=== PATIENT | female | born 1985 | race American Indian/Alaskan Native ===

== ENCOUNTER 2019-01-08 21:40 | Emergency (ER) | payer SELFPAY ==
[2019-01-08 23:24] LABS: Hematocrit 41.1 % (30.3-42.9); Hemoglobin 14.1 gm/dl (10.1-14.3); Mean Corpuscular HGB Conc 34 % (30-34); Mean Corpuscular Volume 86 fl (79-97); Platelet Count 220 K/mm3 (140-440); Red Blood Count 4.77 M/mm3 (3.65-5.03); Red Cell Distribution Width 13.5 % (13.2-15.2)
[2019-01-08 23:36] LABS: Alanine Aminotransferase 18 units/L (7-56); Albumin 4.3 g/dL (3.9-5); BUN/Creatinine Ratio 18; Blood Urea Nitrogen 9 mg/dL (7-17); Calcium 9.4 mg/dL (8.4-10.2); Hemolysis Index 4
[2019-01-08 23:50] LABS: Basophils # (Auto) 0.1 K/mm3 (0.0-0.1); Basophils % (Auto) 0.8 % (0.0-1.8); Eosinophils # (Auto) 0.2 K/mm3 (0.0-0.4); Eosinophils % (Auto) 2.9 % (0.0-4.3); Lymphocytes # (Auto) 1.9 K/mm3 (1.2-5.4); Lymphocytes % (Auto) 25.9 % (13.4-35.0); Monocytes # (Auto) 0.6 K/mm3 (0.0-0.8); Monocytes % (Auto) 8.1 % (0.0-7.3)
[2019-01-09 00:20] LABS: Bacteria,Urine 1+ /HPF (Negative); Bilirubin,Urine NEG (Negative); Blood,Urine NEG (Negative); Color,Urine Yellow (Yellow); Mucus,Urine FEW /HPF; Protein,Urine <15 mg/dL mg/dL (Negative); Urobilinogen,Urine < 2.0 mg/dL (<2.0)
[2019-01-09] MEDS ORDERED: SUCRALFATE 1 GM/10 ML ORAL LIQD PO ONE (01:31)
[2019-01-09] MEDS ORDERED: LIDOCAINE VISCOUS 2% 15 ML ORAL LIQD PO ONE (01:32)
[2019-01-09] MEDS ORDERED: ALUM-MAG HYDROXIDE-SIMETHICONE 200-200-20MG/5ML ORAL LIQD 30 ML PO ONE (01:32)
--- NOTE | 2019-01-09 02:00 | Emergency Department Report ---
ED General Adult HPI - General Chief complaint: Abdominal Pain Stated complaint: ABDOMINAL PAIN Time Seen by Provider: 01/09/19 01:06 Source: patient Mode of arrival: Ambulatory Limitations: No Limitations - History of Present Illness Initial comments: The patient presents to the emergency department with a chief complaint of abdominal cramping that started a couple hours ago along with nausea. Patient states her symptoms started after eating broccoli at work. The patient denies any vomiting or fever. -: Sudden Location: abdomen Radiation: non-radiation Severity scale (0 -10): 2 Quality: other (cramping ) Consistency: now resolved Improves with: none Worsens with: none Associated Symptoms: denies other symptoms Treatments Prior to Arrival: none - Related Data Previous Rx's Medication Instructions Recorded Last Taken Type Amoxicillin [Trimox CAP] 500 mg PO Q8H #30 capsule 07/27/18 Unknown Rx Ibuprofen [Motrin 600 MG tab] 600 mg PO Q8H #15 tablet 07/27/18 Unknown Rx Dicyclomine [Bentyl] 10 mg PO QID PRN #20 capsule 01/09/19 Unknown Rx Allergies Allergy/AdvReac Type Severity Reaction Status Date / Time No Known Allergies Allergy Unverified 07/27/18 15:13 ED Review of Systems ROS: Stated complaint: ABDOMINAL PAIN Other details as noted in HPI Comment: All other systems reviewed and negative Constitutional: denies: chills, fever Eyes: denies: eye pain, eye discharge, vision change ENT: denies: ear pain, throat pain Respiratory: denies: cough, shortness of breath, wheezing Cardiovascular: denies: chest pain, palpitations Endocrine: no symptoms reported Gastrointestinal: abdominal pain. denies: nausea, diarrhea Genitourinary: denies: urgency, dysuria, discharge Musculoskeletal: denies: back pain, joint swelling, arthralgia Skin: denies: rash, lesions Neurological: denies: headache, weakness, paresthesias Psychiatric: denies: anxiety, depression Hematological/Lymphatic: denies: easy bleeding, easy bruising ED Past Medical Hx - Past Medical History Previous Medical History?: No - Surgical History Past Surgical History?: Yes Additional Surgical History: X 2 - Social History Smoking Status: Never Smoker Substance Use Type: None - Medications Home Medications: Home Medications Medication Instructions Recorded Confirmed Last Taken Type Amoxicillin [Trimox CAP] 500 mg PO Q8H #30 capsule 07/27/18 Unknown Rx Ibuprofen [Motrin 600 MG tab] 600 mg PO Q8H #15 tablet 07/27/18 Unknown Rx Dicyclomine [Bentyl] 10 mg PO QID PRN #20 capsule 01/09/19 Unknown Rx ED Physical Exam - General Limitations: No Limitations General appearance: alert, in no apparent distress - Head Head exam: Present: atraumatic, normocephalic - Eye Eye exam: Present: normal appearance, PERRL, EOMI - ENT ENT exam: Present: mucous membranes moist - Neck Neck exam: Present: normal inspection - Respiratory Respiratory exam: Present: normal lung sounds bilaterally. Absent: respiratory distress - Cardiovascular Cardiovascular Exam: Present: regular rate, normal rhythm. Absent: systolic murmur, diastolic murmur, rubs, gallop - GI/Abdominal GI/Abdominal exam: Present: soft, normal bowel sounds. Absent: distended, tenderness - Extremities Exam Extremities exam: Present: normal inspection - Back Exam Back exam: Present: normal inspection - Neurological Exam Neurological exam: Present: alert, oriented X3, CN II-XII intact. Absent: motor sensory deficit - Psychiatric Psychiatric exam: Present: normal affect, normal mood - Skin Skin exam: Present: warm, dry, intact, normal color. Absent: rash ED Course Vital Signs 01/08/19 21:54 Temperature 97.7 F Pulse Rate 64 Respiratory 18 Rate Blood Pressure 122/75 O2 Sat by Pulse 96 Oximetry ED Medical Decision Making - Lab Data Result diagrams: 01/08/19 23:06 01/08/19 23:06 Lab Results 01/08/19 01/08/19 01/08/19 Range/Units 23:06 23:06 23:06 WBC 7.3 (4.5-11.0) K/mm3 RBC 4.77 (3.65-5.03) M/mm3 Hgb 14.1 (10.1-14.3) gm/dl Hct 41.1 (30.3-42.9) % MCV 86 (79-97) fl MCH 30 (28-32) pg MCHC 34 (30-34) % RDW 13.5 (13.2-15.2) % Plt Count 220 (140-440) K/mm3 Lymph % (Auto) 25.9 (13.4-35.0) % [place] % (Auto) 8.1 H (0.0-7.3) % Eos % (Auto) 2.9 (0.0-4.3) % Baso % (Auto) 0.8 (0.0-1.8) % Lymph # 1.9 (1.2-5.4) K/mm3 [place] # 0.6 (0.0-0.8) K/mm3 Eos # 0.2 (0.0-0.4) K/mm3 Baso # 0.1 (0.0-0.1) K/mm3 Seg Neutrophils % 62.3 (40.0-70.0) % Seg Neutrophils # 4.7 (1.8-7.7) K/mm3 Sodium 138 (137-145) mmol/L Potassium 3.8 (3.6-5.0) mmol/L Chloride 102.2 (98-107) mmol/L Carbon Dioxide 26 (22-30) mmol/L Anion Gap 14 mmol/L BUN 9 (7-17) mg/dL Creatinine 0.5 L (0.7-1.2) mg/dL Estimated GFR > 60 ml/min BUN/Creatinine Ratio 18 % Glucose 115 H (65-100) mg/dL Calcium 9.4 (8.4-10.2) mg/dL Total Bilirubin 0.60 (0.1-1.2) mg/dL AST 21 (5-40) units/L ALT 18 (7-56) units/L Alkaline Phosphatase 87 (35-129) units/L Total Protein 8.0 (6.3-8.2) g/dL Albumin 4.3 (3.9-5) g/dL Albumin/Globulin Ratio 1.2 % Lipase 19 (13-60) units/L HCG, Qual Negative (Negative) Urine Color (Yellow) Urine Turbidity (Clear) Urine pH (5.0-7.0) Ur Specific [place] (1.003-1.030) Urine Protein (Negative) mg/dL Urine Glucose (UA) (Negative) mg/dL Urine Ketones (Negative) mg/dL Urine Blood (Negative) Urine Nitrite (Negative) Urine Bilirubin (Negative) Urine Urobilinogen (<2.0) mg/dL Ur Leukocyte Esterase (Negative) Urine WBC (Auto) (0.0-6.0) /HPF Urine RBC (Auto) (0.0-6.0) /HPF U Epithel Cells (Auto) (0-13.0) /HPF Urine Bacteria (Auto) (Negative) /HPF Urine Mucus /HPF 01/08/19 Range/Units 23:45 WBC (4.5-11.0) K/mm3 RBC (3.65-5.03) M/mm3 Hgb (10.1-14.3) gm/dl Hct (30.3-42.9) % MCV (79-97) fl MCH (28-32) pg MCHC (30-34) % RDW (13.2-15.2) % Plt Count (140-440) K/mm3 Lymph % (Auto) (13.4-35.0) % [place] % (Auto) (0.0-7.3) % Eos % (Auto) (0.0-4.3) % Baso % (Auto) (0.0-1.8) % Lymph # (1.2-5.4) K/mm3 [place] # (0.0-0.8) K/mm3 Eos # (0.0-0.4) K/mm3 Baso # (0.0-0.1) K/mm3 Seg Neutrophils % (40.0-70.0) % Seg Neutrophils # (1.8-7.7) K/mm3 Sodium (137-145) mmol/L Potassium (3.6-5.0) mmol/L Chloride (98-107) mmol/L Carbon Dioxide (22-30) mmol/L Anion Gap mmol/L BUN (7-17) mg/dL Creatinine (0.7-1.2) mg/dL Estimated GFR ml/min BUN/Creatinine Ratio % Glucose (65-100) mg/dL Calcium (8.4-10.2) mg/dL Total Bilirubin (0.1-1.2) mg/dL AST (5-40) units/L ALT (7-56) units/L Alkaline Phosphatase (35-129) units/L Total Protein (6.3-8.2) g/dL Albumin (3.9-5) g/dL Albumin/Globulin Ratio % Lipase (13-60) units/L HCG, Qual (Negative) Urine Color Yellow (Yellow) Urine Turbidity Clear (Clear) Urine pH 7.0 (5.0-7.0) Ur Specific [place] 1.016 (1.003-1.030) Urine Protein <15 mg/dl (Negative) mg/dL Urine Glucose (UA) Neg (Negative) mg/dL Urine Ketones Neg (Negative) mg/dL Urine Blood Neg (Negative) Urine Nitrite Neg (Negative) Urine Bilirubin Neg (Negative) Urine Urobilinogen < 2.0 (<2.0) mg/dL Ur Leukocyte Esterase Neg (Negative) Urine WBC (Auto) 2.0 (0.0-6.0) /HPF Urine RBC (Auto) 2.0 (0.0-6.0) /HPF U Epithel Cells (Auto) 1.0 (0-13.0) /HPF Urine Bacteria (Auto) 1+ (Negative) /HPF Urine Mucus Few /HPF - Medical Decision Making results discussed with patient Critical care attestation.: If time is entered above; I have spent that time in minutes in the direct care of this critically ill patient, excluding procedure time. ED Disposition Clinical Impression: Abdominal pain, Nausea Disposition: - TO HOME OR SELFCARE Is pt being admited?: No Does the pt Need Aspirin: No Condition: Stable Instructions: Abdominal Pain (ED) Additional Instructions: return if worse Prescriptions: Dicyclomine [Bentyl] 10 mg PO QID PRN #20 capsule PRN Reason: pain Referrals: PRIMARY CARE,MD [Primary Care Provider] - 3-5 Days [facility] [Provider Group] - 3-5 Days [facility] [Provider Group] - 3-5 Days Forms: Work/School Release Form(ED) Time of Disposition: 01:58
[2019-01-09 02:27] VITALS: BP 116/80
== END 2019-01-09 02:10 | disposition home or self-care (01) ==
LOC: ED 21:40
DX: R10.9 Unspecified abdominal pain (principal); R11.0 Nausea
CPT/HCPCS: 36415; 80053; 81001; 83690; 84703; 85025

== ENCOUNTER 2021-05-31 18:53 | Emergency (ER) | payer SELFPAY ==
[2021-05-31 19:58] LABS: Mucus,Urine FEW /HPF
[2021-05-31 20:07] LABS: Bilirubin,Urine Negative (Negative); Blood,Urine Negative (Negative); Color,Urine Yellow (Yellow)
[2021-05-31 20:08] LABS: Urobilinogen,Urine < 2.0 mg/dL (<2.0)
[2021-06-01 01:20] LABS: Basophils # (Auto) 0.1 K/mm3 (0.0-0.1); Basophils % (Auto) 0.5 % (0.0-1.8); Eosinophils # (Auto) 0.1 K/mm3 (0.0-0.4); Eosinophils % (Auto) 0.4 % (0.0-4.3); Hematocrit 41.7 % (30.3-42.9); Hemoglobin 13.7 gm/dl (10.1-14.3); Lymphocytes % (Auto) 14.3 % (13.4-35.0); Mean Corpuscular HGB Conc 33 % (30-34); Mean Corpuscular Volume 86 fl (79-97); Monocytes # (Auto) 0.8 K/mm3 (0.0-0.8); Monocytes % (Auto) 5.6 % (0.0-7.3); Platelet Count 243 K/mm3 (140-440); Red Blood Count 4.82 M/mm3 (3.65-5.03); Red Cell Distribution Width 13.6 % (13.2-15.2)
[2021-06-01 01:43] LABS: Alanine Aminotransferase 23 units/L (7-56); Albumin 4.2 g/dL (3.9-5); Blood Urea Nitrogen 8 mg/dL (7-17); Calcium 9.2 mg/dL (8.4-10.2); Hemolysis Index 15
[2021-06-01 01:55] LABS: BUN/Creatinine Ratio 16; Bilirubin,Direct < 0.2 mg/dL (0-0.2)
--- NOTE | 2021-06-01 03:26 | Cat Scan Report ---
CT ABDOMEN AND PELVIS WITH INTRAVENOUS CONTRAST INDICATION / CLINICAL INFORMATION: Lower abdominal cramping and pain x 12 hrs. TECHNIQUE: 100 cc Omnipaque [address] scans at this location are performed using CT d ose reduction for ALARA by means of automated exposure control. COMPARISON: None available. FINDINGS: ABDOMEN: There are several tiny cysts or hamartomas scattered throughout the liver. The gallbladder, bile ducts, pancreas, spleen, adrenal glands and kidneys are normal. There is a moderate hiatal herni a. I see no evidence of bowel obstruction, wall thickening or free air. No adenopathy is present. No acute vascular abnormality is seen. The lung bases are clear. PELVIS: There is a 9 cm complex cystic mass in the mid to lower pelvis in the midline. The mass conta ins internal septations and there is a fat fluid level anteriorly/superiorly. No calcifications are s een within the mass. There is a possible normal right ovary. I do not identify a separate left ovary. No free fluid is present. The uterus is displaced anteriorly by the mass. A normal appendix is identified and there is no evidence of diverticulitis. The distal ureters and ur inary bladder are normal. I do not identify a hernia. No acute osseous abnormality is present. IMPRESSION: 9 cm complex cystic mass in the mid to lower pelvis near the midline is probably ovarian. 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 This could be a cause for ovarian torsion. No free fluid is seen. Signer Name: Kodi Kan MD Signed: 06/01/2021 3:21 AM Workstation Name: [id number]
--- NOTE | 2021-06-01 06:39 | Emergency Department Report ---
ED Abdominal Pain HPI - General Chief Complaint: Abdominal Pain Stated Complaint: STOMACH PAIN Time Seen by Provider: 06/01/21 00:56 Source: patient, family Mode of arrival: Ambulatory Limitations: No Limitations - History of Present Illness Initial Comments: 36-year-old [place] female [facility] emerge department complaining of a few hour history of lower abdominal pain and a sharp crampy in nature radiating across the suprapubic region through to the flank associated with occasional nausea but no vomiting or diarrhea. She reports no hemoptysis no hematemesis hematochezia, no fever, chills, sweats. She reports no traumatic events and unsure of her status at this present time. MD Complaint: abdominal pain Radiation: suprapubic Migration to: suprapubic Consistency: constant Improves With: nothing Worsens With: movement Associated Symptoms: nausea. denies: constipation, dysuria, hematemesis, hematuria, anorexia - Related Data Previous Rx's Medication Instructions Recorded Last Taken Type Amoxicillin [Trimox CAP] 500 mg PO Q8H #30 capsule 07/27/18 Unknown Rx Ibuprofen [Motrin 600 MG tab] 600 mg PO Q8H #15 tablet 07/27/18 Unknown Rx Dicyclomine [Bentyl] 10 mg PO QID PRN #20 capsule 01/09/19 Unknown Rx Ketorolac [Toradol] 10 mg PO Q6H PRN #14 06/01/21 Unknown Rx Allergies Allergy/AdvReac Type Severity Reaction Status Date / Time No Known Allergies Allergy Unverified 07/27/18 15:13 ED Review of Systems ROS: Stated complaint: STOMACH PAIN Other details as noted in HPI Comment: All other systems reviewed and negative ED Past Medical Hx - Surgical History Additional Surgical History: X 2 - Social History Smoking Status: Never Smoker Substance Use Type: None - Medications Home Medications: Home Medications Medication Instructions Recorded Confirmed Last Taken Type Amoxicillin [Trimox CAP] 500 mg PO Q8H #30 capsule 07/27/18 Unknown Rx Ibuprofen [Motrin 600 MG tab] 600 mg PO Q8H #15 tablet 07/27/18 Unknown Rx Dicyclomine [Bentyl] 10 mg PO QID PRN #20 capsule 01/09/19 Unknown Rx Ketorolac [Toradol] 10 mg PO Q6H PRN #14 06/01/21 Unknown Rx ED Physical Exam - General Limitations: No Limitations General appearance: alert, in no apparent distress - Head Head exam: Present: atraumatic, normocephalic - Eye Eye exam: Present: normal appearance, PERRL Pupils: Present: normal accommodation - ENT ENT exam: Present: normal exam, normal orophraynx, mucous membranes moist, TM's normal bilaterally - Neck Neck exam: Present: normal inspection - Respiratory Respiratory exam: Present: normal lung sounds bilaterally. Absent: respiratory distress - Cardiovascular Cardiovascular Exam: Present: regular rate, normal rhythm. Absent: systolic murmur, diastolic murmur, rubs, gallop - GI/Abdominal GI/Abdominal exam: Present: soft, tenderness (Tenderness to suprapubic region with palpation left adnexa greater than right but no masses appreciated), normal bowel sounds - Extremities Exam Extremities exam: Present: normal inspection - Back Exam Back exam: Present: normal inspection - Neurological Exam Neurological exam: Present: alert, oriented X3 - Psychiatric Psychiatric exam: Present: normal affect, normal mood - Skin Skin exam: Present: warm, dry, intact, normal color. Absent: rash ED Course Vital Signs 05/31/21 05/31/21 19:04 19:05 Temperature 99.4 F Pulse Rate 88 85 Respiratory 16 Rate Blood Pressure 123/71 O2 Sat by Pulse 99 98 Oximetry ED Medical Decision Making - Lab Data Result diagrams: 06/01/21 01:04 06/01/21 01:04 - Radiology Data Radiology results: [id number] Cat Scan Report Signed Patient: EDISON FOUNTAIN MR#: [id number] : 1985 Acct:[id number] Age/Sex: 36 / F ADM Date: 05/31/21 Loc: ED Attending Dr: Ordering Physician: PHYLLIS BENAVIDES Date of Service: 06/01/21 Procedure(s): CT abdomen pelvis w con Accession Number(s): [id number] cc: PHYLLIS BENAVIDES CT ABDOMEN AND PELVIS WITH INTRAVENOUS CONTRAST INDICATION / CLINICAL INFORMATION: Lower abdominal cramping and pain x 12 hrs. TECHNIQUE: 100 cc Omnipaque [address] scans at this location are performed using CT dose reduction for ALARA by means of automated exposure control. COMPARISON: None available. FINDINGS: ABDOMEN: There are several tiny cysts or hamartomas scattered throughout the liver. The gallbladder, bile ducts, pancreas, spleen, adrenal glands and kidneys are normal. There is a moderate hiatal hernia. I see no evidence of bowel obstruction, wall thickening or free air. No adenopathy is present. No acute vascular abnormality is seen. The lung bases are clear. PELVIS: There is a 9 cm complex cystic mass in the mid to lower pelvis in the midline. The mass contains internal septations and there is a fat fluid level ant eriorly/superiorly. No calcifications are seen within the mass. There is a possible normal right ovary. I do not identify a separate left ovary. No free fluid is present. The uterus is displaced anteriorly by the mass. A normal appendix is identified and there is no evidence of diverticulitis. The distal ureters and urinary bladder are normal. I do not identify a hernia. No acute osseous ab normality is present. IMPRESSION: 9 cm complex cystic mass in the mid to lower pelvis near the midline is probably ovarian. The mass contains a small amount of fat and is likely an ovarian dermo id. This could be a cause for ovarian torsion. No free fluid is seen. Signer Name: Kodi Kan MD Signed: 06/01/2021 3:21 AM Workstation Name: [id number] Transcribed By: RT Dictated By: Kodi Kan MD Electronically Authenticated By: Kodi Kan MD Signed Date/Time: 06/01/21320 DD/ 1 TD/TT: Critical care attestation.: If time is entered above; I have spent that time in minutes in the direct care of this critically ill patient, excluding procedure time. ED Disposition Clinical Impression: Ovarian cyst Disposition: 01 HOME / SELF CARE / HOMELESS Is pt being admited?: No Does the pt Need Aspirin: No Condition: Stable Instructions: Abdominal Pain (ED), Ovarian Cystectomy, Ovarian Cyst, Tmis-am-Cohs Prescriptions: Ketorolac [Toradol] 10 mg PO Q6H PRN #14 PRN Reason: Pain Referrals: PRIMARY CARE, [Primary Care Provider] - 3-5 Days
--- NOTE | 2021-06-01 07:10 | Ultrasound Report ---
ULTRASOUND PELVIS INDICATION / CLINICAL INFORMATION: Pelvic pain. Possible torsion. TECHNIQUE: Transabdominal and Transvaginal. Duplex Color Doppler used: Yes. COMPARISON: CT abdomen and pelvis earlier today. FINDINGS: UTERUS: 8.9 x 4.1 x 4.3 cm. Endometrial stripe measures 8.7 mm AP. No fibroids are seen. The uterus i s displaced anteriorly and to the right. RIGHT ADNEXA: The right ovary is not visualized. No right adnexal mass is seen. LEFT ADNEXA: 9.3 cm complex cystic mass in the left adnexa and cul-de-sac. The lesion is predominantl y complex cystic but contains a focal hyperechoic focus which likely corresponds to the fat seen on C T. Normal color Doppler blood flow. URINARY BLADDER: No significant abnormality. FREE FLUID: None. ADDITIONAL FINDINGS: None. IMPRESSION: 9.3 cm complex cystic mass in the left adnexa is characteristic of an ovarian dermoid. No sonographic evidence of torsion is seen at this time. Signer Name: Kodi Kan MD Signed: 06/01/2021 7:06 AM Workstation Name: [id number]
[2021-06-01 08:01] VITALS: BP 122/74
== END 2021-06-01 07:56 | disposition home or self-care (01) ==
LOC: ED 18:53
DX: N83.209 Unspecified ovarian cyst, unspecified side (principal); I10 Essential (primary) hypertension; I25.10 Atherosclerotic heart disease of native coronary artery without angina pectoris; G89.29 Other chronic pain; Z98.890 Other specified postprocedural states
CPT/HCPCS: 36415; 74177; 76830; 76856; 80048; 80076; 81001; 84703; 85025; 99284; Q9967

== ENCOUNTER 2021-09-14 09:41 | Emergency (ER) | payer SELFPAY ==
[2021-09-14 11:10] VITALS: BP 128/68
--- NOTE | 2021-09-14 13:58 | Ultrasound Report ---
ULTRASOUND OBSTETRIC INDICATION / CLINICAL INFORMATION: pain sp fall. Pelvic pain after fall on 09/11/21. - Clinical Gestational Age (GA) in weeks, days: 7, 4 TECHNIQUE: Transabdominal and Transvaginal. COMPARISON: Ultrasound and CT dated 06/01/21 FINDINGS: GESTATIONAL SAC: Well-defined oval shape and intrauterine in location. YOLK SAC: No significant abnormality. EMBRYO/FETUS: No significant abnormality. - [place]-Rump Length = 1 2 cm = 7, 2 weeks, days - Heart Rate, beats per minute (if present) = 131 UTERUS: Small subchorionic bleed measuring 2.0 x 0.8 cm. ADNEXA: Large, complex cystic lesion with echogenic nodule in the right adnexa is unchanged since patricio or study. Lesion measures 7.8 x 5.8 x 7.0 cm on the current study essentially unchanged since the patricio or study. Small simple appearing left ovarian cysts. FREE FLUID: None. ADDITIONAL FINDINGS: None. IMPRESSION: 1. Single, living intrauterine with estimated sonographic age of 7, 2 weeks, days. 2. No change in large, complex cystic lesion in the right adnexa likely representing ovarian dermoid cyst. Signer Name: Steve Miller MD Signed: 09/14/2021 1:54 PM Workstation Name: [id number]
[2021-09-14 19:30] LABS: Color,Urine Straw (Yellow)
[2021-09-14 19:31] LABS: Bilirubin,Urine Negative (Negative); Blood,Urine Negative (Negative)
[2021-09-14 19:32] LABS: Urobilinogen,Urine < 2.0 mg/dL (<2.0)
--- NOTE | 2021-09-14 19:36 | Emergency Department Report ---
ED Fall HPI - General Chief Complaint: Abdominal Pain Stated Complaint: STOMACH PAIN Source: patient Mode of arrival: Ambulatory - History of Present Illness Initial Comments: Patient is a A1 36-year-old -Citizen Of The [place] female who is approximately 7 weeks gestation presents to the ED with complaint of acute onset abdominal pain after she tripped and fell down at home while sitting on a chair as the chair broke down 4 days ago. Patient states that the pain has been persistent since the injury. Patient denies vaginal bleeding, nausea and vomiting, back pain, head or neck injuries, chest pain or shortness of breath, dysuria, urinary frequency and urgency or vaginal discharge. MD Complaint: fall, other (ABDOMINAL PAIN, 7 weeks gestation) -: days(s) (4) Fall From: chair When Fall Occurred: # days [employer] O[employer] (4) Fall Witnessed: yes, by family Place Fall Occurred: home Loss of Consciousness: none Prolonged Down Time?: no Symptoms Prior to Fall: none Location: abdomen Severity: mild Severity scale (0 -10): 1 Quality: aching Context: tripped/slipped Associated Symptoms: denies. denies: headache, neck pain, numbness, weakness, chest paint, shortness of breath, abdominal pain, hematuria, unable to walk, lightheaded, vertigo, confusion - Related Data Previous Rx's Medication Instructions Recorded Last Taken Type Amoxicillin [Trimox CAP] 500 mg PO Q8H #30 capsule 07/27/18 Unknown Rx Ibuprofen [Motrin 600 MG tab] 600 mg PO Q8H #15 tablet 07/27/18 Unknown Rx Dicyclomine [Bentyl] 10 mg PO QID PRN #20 capsule 01/09/19 Unknown Rx Ketorolac [Toradol] 10 mg PO Q6H PRN #14 06/01/21 Unknown Rx Acetaminophen [Tylenol] 500 mg PO Q6HR PRN #40 tablet 09/14/21 Unknown Rx Allergies Allergy/AdvReac Type Severity Reaction Status Date / Time No Known Allergies Allergy Unverified 07/27/18 15:13 ED Review of Systems ROS: Stated complaint: STOMACH PAIN Other details as noted in HPI Constitutional: denies: chills, fever Eyes: denies: eye pain, eye discharge, vision change ENT: denies: ear pain, throat pain Respiratory: denies: cough, shortness of breath, wheezing Cardiovascular: denies: chest pain, palpitations Endocrine: no symptoms reported Gastrointestinal: abdominal pain. denies: nausea, vomiting, diarrhea Genitourinary: denies: urgency, dysuria, discharge Musculoskeletal: denies: back pain, joint swelling, arthralgia Skin: denies: rash, lesions Neurological: denies: headache, weakness, paresthesias Psychiatric: denies: anxiety, depression Hematological/Lymphatic: denies: easy bleeding, easy bruising ED Past Medical Hx - Past Medical History Previous Medical History?: No - Surgical History Past Surgical History?: Yes Additional Surgical History: X 2 - Social History Smoking Status: Never Smoker Substance Use Type: None - Medications Home Medications: Home Medications Medication Instructions Recorded Confirmed Last Taken Type Amoxicillin [Trimox CAP] 500 mg PO Q8H #30 capsule 07/27/18 Unknown Rx Ibuprofen [Motrin 600 MG tab] 600 mg PO Q8H #15 tablet 07/27/18 Unknown Rx Dicyclomine [Bentyl] 10 mg PO QID PRN #20 capsule 01/09/19 Unknown Rx Ketorolac [Toradol] 10 mg PO Q6H PRN #14 06/01/21 Unknown Rx Acetaminophen [Tylenol] 500 mg PO Q6HR PRN #40 tablet 09/14/21 Unknown Rx ED Physical Exam - General Limitations: No Limitations General appearance: alert, in no apparent distress - Head Head exam: Present: atraumatic, normocephalic, normal inspection - Eye Eye exam: Present: normal appearance, PERRL, EOMI Pupils: Present: normal accommodation - ENT ENT exam: Present: normal orophraynx, mucous membranes moist, TM's normal bilaterally, normal external ear exam - Neck Neck exam: Present: normal inspection, full ROM - Respiratory Respiratory exam: Present: normal lung sounds bilaterally. Absent: respiratory distress, wheezes, rales, rhonchi, chest wall tenderness, accessory muscle use, decreased breath sounds, prolonged expiratory - Cardiovascular Cardiovascular Exam: Present: regular rate, normal rhythm, normal heart sounds. Absent: systolic murmur, diastolic murmur, rubs, gallop - GI/Abdominal GI/Abdominal exam: Present: soft, normal bowel sounds. Absent: tenderness, guarding, rebound, hyperactive bowel sounds, hypoactive bowel sounds, organomegaly - Extremities Exam Extremities exam: Present: normal inspection, full ROM, normal capillary refill. Absent: tenderness - Back Exam Back exam: Present: normal inspection, full ROM. Absent: tenderness, CVA tenderness (R), CVA tenderness (L), muscle spasm, paraspinal tenderness, vertebral tenderness - Neurological Exam Neurological exam: Present: alert, oriented X3, CN II-XII intact, normal gait, reflexes normal - Psychiatric Psychiatric exam: Present: normal affect, normal mood - Skin Skin exam: Present: warm, dry, intact, normal color. Absent: rash ED Course Vital Signs 09/14/21 11:05 Temperature 98.1 F Pulse Rate 70 Respiratory 20 Rate Blood Pressure 128/68 [Right] O2 Sat by Pulse 100 Oximetry ED Medical Decision Making - Radiology Data Radiology results: report reviewed, image reviewed [facility] [address] [place] [address] Ultrasound Report Signed Patient: EDISON FOUNTAIN MR#: [id number] : 1985 Acct:[id number] Age/Sex: 36 / F ADM Date: 09/14/21 Loc: ED Attending Dr: Ordering Physician: ISIDRA PRECIADO Date of Service: 09/14/21 Procedure(s): US OB transvaginal Accession Number(s): [id number] cc: ISIDRA PRECIADO ULTRASOUND OBSTETRIC INDICATION / CLINICAL INFORMATION: pain sp fall. Pelvic pain after fall on 09/11/21. - Clinical Gestational Age (GA) in weeks, days: 7, 4 TECHNIQUE: Transabdominal and Transvaginal. COMPARISON: Ultrasound and CT dated 06/01/21 FINDINGS: GESTATIONAL SAC: Well-defined oval shape and intrauterine in location. YOLK SAC: No significant abnormality. EMBRYO/FETUS: No significant abnormality. - Monessen-Rump Length = 1 2 cm = 7, 2 weeks, days - Heart Rate, beats per minute (if present) = 131 UTERUS: Small subchorionic bleed measuring 2.0 x 0.8 cm. ADNEXA: Large, complex cystic lesion with echogenic nodule in the right adnexa is unchanged since prior study. Lesion measures 7.8 x 5.8 x 7.0 cm on the current study essentially unchanged since the prior study. Small simple appearing left ovarian cysts. FREE FLUID: None. ADDITIONAL FINDINGS: None. IMPRESSION: 1. Single, living intrauterine with estimated sonographic age of 7, 2 weeks, days. 2. No change in large, complex cystic lesion in the right adnexa likely representing ovarian dermoid cyst. Signer Name: Steve Miller MD Signed: 09/14/2021 1:54 PM Workstation Name: [id number] Transcribed By: CLAUDIA Dictated By: Hung Miller MD Electronically Authenticated By: Hung Miller MD Signed Date/Time: 09/14/21 1354 DD/ 1349 TD/TT: -------- [facility] [address] [place] [address] Ultrasound Report Signed Patient: EDISON FOUNTAIN MR#: [id number] : 1985 Acct:[id number] Age/Sex: 36 / F ADM Date: 09/14/21 Loc: ED Attending Dr: Ordering Physician: ISIDRA PRECIADO Date of Service: 09/14/21 Procedure(s): US OB <= 14 weeks fetus Accession Number(s): [id number] cc: ISIDRA PRECIADO ULTRASOUND OBSTETRIC INDICATION / CLINICAL INFORMATION: pain sp fall. Pelvic pain after fall on 09/11/21. - Clinical Gestational Age (GA) in weeks, days: 7, 4 TECHNIQUE: Transabdominal and Transvaginal. COMPARISON: Ultrasound and CT dated 06/01/21 FINDINGS: GESTATIONAL SAC: Well-defined oval shape and intrauterine in location. YOLK SAC: No significant abnormality. EMBRYO/FETUS: No significant abnormality. - Monessen-Rump Length = 1 2 cm = 7, 2 weeks, days - Heart Rate, beats per minute (if present) = 131 UTERUS: Small subchorionic bleed measuring 2.0 x 0.8 cm. ADNEXA: Large, complex cystic lesion with echogenic nodule in the right adnexa is unchanged since prior study. Lesion measures 7.8 x 5.8 x 7.0 cm on the current study essentially unchanged since the prior study. Small simple appearing left ovarian cysts. FREE FLUID: None. ADDITIONAL FINDINGS: None. IMPRESSION: 1. Single, living intrauterine with estimated sonographic age of 7, 2 weeks, days. 2. No change in large, complex cystic lesion in the right adnexa likely representing ovarian dermoid cyst. Signer Name: Steve Miller MD Signed: 09/14/2021 1:54 PM Workstation Name: [id number] Transcribed By: DT Dictated By: Hung Miller MD Electronically Authenticated By: Hung Miller MD Signed Date/Time: 09/14/21 1359 DD/ 1349 TD/TT: Print - Medical Decision Making This is a A1 36-year-old -Citizen Of [place] female who is approximately 7 weeks gestation presents to the ED with complaint of acute onset abdominal pain after she tripped and fell down at home while sitting on a chair as the chair broke down 4 days ago. Patient states that the pain has been persistent since the injury. In the ED, patient is alert and oriented x3 and is not in any distress. Lab test results were reviewed and are all nonactionable. Transvaginal ultrasound showed a single, living intrauterine with estimated sonographic age of 7, 2 weeks, days with a heart rate of 131 bpm. In addition, it also showed no change in large, complex cystic lesion in the right adnexa likely representing ovarian dermoid cyst. Patient was therefore discharged home and advised to follow-up with the [employer] [employer] physician in 5 to 7 days for reevaluation or return to the ED immediately if symptoms get worse. - Differential Diagnosis Abdominal contusion; UTI; subchorionic bleed; Critical care attestation.: If time is entered above; I have spent that time in minutes in the direct care of this critically ill patient, excluding procedure time. ED Disposition Clinical Impression: Abdominal pain during in first trimester, Contusion of abdominal wall, initial encounter Disposition: 01 HOME / SELF CARE / HOMELESS Is pt being admited?: No Does the pt Need Aspirin: No Condition: Stable Instructions: Abdominal Pain During , [id number], Contusion, [id number], Abdominal Pain (ED) Additional Instructions: The transvaginal ultrasound and pelvic ultrasound showed a single, living intrauterine with estimated sonographic age of 7, 2 weeks, days and with a heart rate of 131 bpm. It also showed no change in large, complex cystic lesion in the right adnexa likely representing ovarian dermoid cyst. Therefore take Tylenol as needed for pain, plenty of fluids, follow-up with your [facility] physician in 5 to 7 days for reevaluation. Return to the ED immediately if symptoms get worse. Prescriptions: Acetaminophen [Tylenol] 500 mg PO Q6HR PRN #40 tablet PRN Reason: Pain , Severe (7-10) Referrals: ABHILASH MALDONADO MD [Staff Physician] - 3-5 Days Forms: Work/School Release Form(ED) Time of Disposition: 19:37 Print Language: CHINESE
[2021-09-14 19:48] LABS: Bacteria,Urine 1+ /HPF (Negative); Mucus,Urine 3+ /HPF
== END 2021-09-15 00:04 | disposition home or self-care (01) ==
LOC: ED 09:41
DX: O26.891 Other specified pregnancy related conditions, first trimester (principal); S30.1XXA Contusion of abdominal wall, initial encounter; Z3A.01 Less than 8 weeks gestation of pregnancy; Z98.890 Other specified postprocedural states; W01.0XXA Fall on same level from slipping, tripping and stumbling without subsequent striking against object, initial encounter; Y93.89 Activity, other specified; Y92.89 Other specified places as the place of occurrence of the external cause; Y99.8 Other external cause status
CPT/HCPCS: 76801; 76817; 81001; 99284

== ENCOUNTER 2021-11-11 13:26 | Emergency (ER) | payer MEDICAID, OTHER ==
[2021-11-11] MEDS ORDERED: SODIUM CHLORIDE 0.9% 1000 ML 1,000 ML IV ONE (14:37)
[2021-11-11 15:14] LABS: Basophils # (Auto) 0.1 K/mm3 (0.0-0.1); Basophils % (Auto) 0.5 % (0.0-1.8); Eosinophils # (Auto) 0.1 K/mm3 (0.0-0.4); Eosinophils % (Auto) 0.7 % (0.0-4.3); Hematocrit 35.4 % (30.3-42.9); Hemoglobin 12.6 gm/dl (10.1-14.3); Lymphocytes # (Auto) 1.9 K/mm3 (1.2-5.4); Lymphocytes % (Auto) 18.7 % (13.4-35.0); Mean Corpuscular HGB Conc 36 % (30-34); Mean Corpuscular Volume 86 fl (79-97); Monocytes # (Auto) 0.6 K/mm3 (0.0-0.8); Platelet Count 201 K/mm3 (140-440); Red Blood Count 4.12 M/mm3 (3.65-5.03); Red Cell Distribution Width 14.1 % (13.2-15.2)
[2021-11-11 15:29] LABS: INR 0.93 (0.87-1.13)
[2021-11-11 15:36] LABS: Blood Urea Nitrogen 4 mg/dL (7-17); Calcium 8.3 mg/dL (8.4-10.2); Hemolysis Index 10
[2021-11-11 15:46] LABS: BUN/Creatinine Ratio 10
--- NOTE | 2021-11-11 16:36 | Ultrasound Report ---
US OB <= 14 WEEKS FETUS US OB TRANSVAGINAL INDICATION / CLINICAL INFORMATION: Vaginal bleeding. COMPARISON: Ultrasound 08/15/2021 FINDINGS: There is no intrauterine . Trace endometrial fluid is noted. Endometrial echo complex is thi ckened measuring up to 3.6 cm. There is vascularity in this region. 1.6 cm left ovarian cyst is noted. 8.3 cm right ovarian mass consistent with the patient's known dermoid lesion, unchanged. IMPRESSION: 1. No sonographic evidence of intrauterine . 2. In addition to trace endometrial fluid, endometrial echo complex is markedly thickened measuring o hossein 3 cm and has vascularity here. This is concerning for retained products. 3. Large right ovarian dermoid as seen on prior studies. Signer Name: Toño Simmons MD Signed: 11/11/2021 4:31 PM Workstation Name: [email or web address]
[2021-11-11] MEDS ORDERED: MORPHINE 4 MG/1 ML INJ IV ONE (16:56)
[2021-11-11] MEDS ORDERED: ONDANSETRON 4 MG/2 ML INJ IV ONE (16:56)
--- NOTE | 2021-11-11 17:04 | Emergency Department Report ---
ED Abdominal Pain HPI - General Chief Complaint: Urogenital-Female Stated Complaint: MISCARRIAGE PUI?: No Time Seen by Provider: 11/11/21 14:37 Source: patient, EMS Mode of arrival: Stretcher Limitations: No Limitations - History of Present Illness Initial Comments: PT HERE AFTER HAVING MISCARRIAGE THIS AFTERNOON, FETUS BROUGHT IN MD Complaint: abdominal pain -: hour(s) Location: diffuse Radiation: none Migration to: no migration Severity scale (0 -10): 3 Quality: aching Consistency: constant Improves With: nothing Associated Symptoms: denies: denies other symptoms, chills, constipation - Related Data Previous Rx's Medication Instructions Recorded Last Taken Type Amoxicillin [Trimox CAP] 500 mg PO Q8H #30 capsule 07/27/18 Unknown Rx Ibuprofen [Motrin 600 MG tab] 600 mg PO Q8H #15 tablet 07/27/18 Unknown Rx Dicyclomine [Bentyl] 10 mg PO QID PRN #20 capsule 01/09/19 Unknown Rx Ketorolac [Toradol] 10 mg PO Q6H PRN #14 06/01/21 Unknown Rx Acetaminophen [Tylenol] 500 mg PO Q6HR PRN #40 tablet 09/14/21 Unknown Rx Allergies Allergy/AdvReac Type Severity Reaction Status Date / Time No Known Allergies Allergy Verified 11/11/21 14:02 ED Review of Systems ROS: Stated complaint: MISCARRIAGE Other details as noted in HPI Constitutional: denies: chills, fever Eyes: denies: eye pain, eye discharge, vision change ENT: denies: ear pain, throat pain Respiratory: denies: cough, shortness of breath, wheezing Cardiovascular: denies: chest pain, palpitations Endocrine: no symptoms reported Gastrointestinal: denies: abdominal pain, nausea, diarrhea Genitourinary: denies: urgency, dysuria, discharge Musculoskeletal: denies: back pain, joint swelling, arthralgia Skin: denies: rash, lesions Neurological: denies: headache, weakness, paresthesias Psychiatric: denies: anxiety, depression Hematological/Lymphatic: denies: easy bleeding, easy bruising ED Past Medical Hx - Past Medical History Previous Medical History?: No Hx Hypertension: No Additional medical history: MISCARRIAGE - Surgical History Past Surgical History?: No Additional Surgical History: X 2 - Social History Smoking Status: Never Smoker Substance Use Type: None - Medications Home Medications: Home Medications Medication Instructions Recorded Confirmed Last Taken Type Amoxicillin [Trimox CAP] 500 mg PO Q8H #30 capsule 07/27/18 Unknown Rx Ibuprofen [Motrin 600 MG tab] 600 mg PO Q8H #15 tablet 07/27/18 Unknown Rx Dicyclomine [Bentyl] 10 mg PO QID PRN #20 capsule 01/09/19 Unknown Rx Ketorolac [Toradol] 10 mg PO Q6H PRN #14 06/01/21 Unknown Rx Acetaminophen [Tylenol] 500 mg PO Q6HR PRN #40 tablet 09/14/21 Unknown Rx ED Physical Exam - General Limitations: No Limitations General appearance: alert, in no apparent distress - Head Head exam: Present: atraumatic, normocephalic - Eye Eye exam: Present: normal appearance - ENT ENT exam: Present: mucous membranes moist - Neck Neck exam: Present: normal inspection - Respiratory Respiratory exam: Present: normal lung sounds bilaterally. Absent: respiratory distress - Cardiovascular Cardiovascular Exam: Present: regular rate, normal rhythm. Absent: systolic murmur, diastolic murmur, rubs, gallop - GI/Abdominal GI/Abdominal exam: Present: soft, normal bowel sounds - Extremities Exam Extremities exam: Present: normal inspection - Back Exam Back exam: Present: normal inspection - Neurological Exam Neurological exam: Present: alert, oriented X3 - Psychiatric Psychiatric exam: Present: normal affect, normal mood - Skin Skin exam: Present: warm, dry, intact, normal color. Absent: rash ED Course Vital Signs 11/11/21 11/11/21 11/11/21 14:00 14:30 14:35 Pulse Rate 120 H Respiratory 16 18 Rate Blood Pressure Blood Pressure 127/83 [Right] O2 Sat by Pulse 98 96 96 Oximetry 11/11/21 11/11/21 11/11/21 14:48 16:18 16:31 Pulse Rate 79 Respiratory 15 Rate Blood Pressure 117/61 123/69 Blood Pressure [Right] O2 Sat by Pulse 96 100 98 Oximetry 11/11/21 16:45 Pulse Rate 74 Respiratory 21 Rate Blood Pressure 116/60 Blood Pressure [Right] O2 Sat by Pulse 98 Oximetry ED Medical Decision Making - Lab Data Result diagrams: 11/11/21 15:05 11/11/21 15:05 - Radiology Data Radiology results: report reviewed, image reviewed - Medical Decision Making work up US showed imcompete vss, no distres bleeidng stopped, will se mikana Ob for D/C next week pain controlled Critical care attestation.: If time is entered above; I have spent that time in minutes in the direct care of this critically ill patient, excluding procedure time. ED Disposition Clinical Impression: Incomplete Disposition: HOME / SELF CARE / HOMELESS Is pt being admited?: Yes Does the pt Need Aspirin: Yes Condition: Stable Instructions: Incomplete Miscarriage, Miscarriage, [id number]
[2021-11-11 19:10] VITALS: BP 112/67
== END 2021-11-11 19:56 | disposition home or self-care (01) ==
LOC: ED 13:26
DX: O03.4 Incomplete spontaneous abortion without complication (principal); Z3A.00 Weeks of gestation of pregnancy not specified
CPT/HCPCS: 36415; 76801; 76817; 80048; 84702; 85025; 85610; 86850; 86900; 86901; 96361; 96374; 96375; 99284; J2270; J2405; J7030

== ENCOUNTER 2021-11-12 23:10 | Emergency (ER) | payer OTHER ==
[2021-11-13 00:11] LABS: Basophils % (Auto) 0.4 % (0.0-1.8); Eosinophils # (Auto) 0.1 K/mm3 (0.0-0.4); Eosinophils % (Auto) 1.5 % (0.0-4.3); Hematocrit 35.8 % (30.3-42.9); Hemoglobin 12.1 gm/dl (10.1-14.3); Lymphocytes # (Auto) 2.3 K/mm3 (1.2-5.4); Lymphocytes % (Auto) 25.3 % (13.4-35.0); Mean Corpuscular HGB Conc 34 % (30-34); Mean Corpuscular Volume 88 fl (79-97); Monocytes # (Auto) 0.7 K/mm3 (0.0-0.8); Monocytes % (Auto) 7.8 % (0.0-7.3); Platelet Count 222 K/mm3 (140-440); Red Blood Count 4.08 M/mm3 (3.65-5.03); Red Cell Distribution Width 14.5 % (13.2-15.2)
[2021-11-13 00:59] LABS: Bacteria,Urine 1+ /HPF (Negative); Color,Urine Red (Yellow); Mucus,Urine 3+ /HPF; RBC,Urine > 182.0 /HPF (0.0-6.0)
[2021-11-13] MEDS ORDERED: ACETAMINOPHEN 500 MG TAB PO ONE (02:02)
[2021-11-13] MEDS ORDERED: MORPHINE 4 MG/1 ML INJ IV ONE (02:23)
[2021-11-13] MEDS ORDERED: cefTRIAXone/NS 1 GM/50 ML 1 GM/50 ML BAG IV ONE (02:25)
[2021-11-13] MEDS ORDERED: SODIUM CHLORIDE 0.9% 1000 ML 1,000 ML IV ONE (03:22)
[2021-11-13 03:38] LABS: Hemoglobin 9.9 gm/dl (10.1-14.3)
--- NOTE | 2021-11-13 04:24 | Emergency Department Report ---
ED HPI - General Chief complaint: Vaginal Bleeding Stated complaint: BLEEDING Time Seen by Provider: 11/13/21 02:21 Source: patient Mode of arrival: Ambulatory Limitations: No Limitations - History of Present Illness Initial comments: Patient is a 36-year-old female who was 15+2 weeks and was seen here yesterday and diagnosed with incomplete AB. She presents with her who states that she was doing fine until this evening when she started having severe cramping and bleeding again. Patient is extremely uncomfortable upon my arrival into the room and was given morphine. Most of history is obtained from as patient was initially extremely uncomfortable. He does state that she has been sitting on the commode at home prior to coming to the ER and intermittently since she has been here so he has no idea how much bleeding she has had but he states "it was all over the bathroom and all over her close." Ultrasound from yesterday's visit final impression as follows: IMPRESSION: 1. No sonographic evidence of intrauterine . 2. In addition to trace endometrial fluid, endometrial echo complex is markedly thickened measuring over 3 cm and has vascularity here. This is concerning for retained products. 3. Large right ovarian dermoid as seen on prior studies. . MD Complaint: vaginal bleeding, "contractions" - Related Data Previous Rx's Medication Instructions Recorded Last Taken Type Acetaminophen [Acetaminophen TAB] 500 mg PO Q6HR PRN #40 tablet 09/14/21 Unknown Rx Methylergonovine [Methergine] 0.2 mg PO Q6HR 3 Days #12 tablet 11/13/21 Unknown Rx 148/Iron/Folate 6/Dha 1 each PO DAILY #30 cap 11/13/21 Unknown Rx [Tendera-Ob Softgel] Allergies Allergy/AdvReac Type Severity Reaction Status Date / Time No Known Allergies Allergy Verified 11/11/21 14:02 ED Review of Systems ROS: Stated complaint: BLEEDING Other details as noted in HPI ED Past Medical Hx - Past Medical History Previous Medical History?: Yes Hx Hypertension: No Additional medical history: MISCARRIAGE - Surgical History Past Surgical History?: Yes Additional Surgical History: X 2 - Social History Smoking Status: Never Smoker Substance Use Type: None - Medications Home Medications: Home Medications Medication Instructions Recorded Confirmed Last Taken Type Acetaminophen [Acetaminophen TAB] 500 mg PO Q6HR PRN #40 tablet 09/14/21 Unknown Rx Methylergonovine [Methergine] 0.2 mg PO Q6HR 3 Days #12 tablet 11/13/21 Unknown Rx 148/Iron/Folate 6/Dha 1 each PO DAILY #30 cap 11/13/21 Unknown Rx [Tendera-Ob Softgel] ED Physical Exam - General Limitations: No Limitations ED Course Vital Signs 11/12/21 11/13/21 23:17 01:53 Temperature 97.8 F Pulse Rate 76 84 Respiratory 18 14 Rate Blood Pressure 117/74 Blood Pressure 106/72 [Left] O2 Sat by Pulse 98 100 Oximetry - Reevaluation(s) Reevaluation #1: 11/13/21 05:12 Multiple reevaluations after pelvic exam. Patient just has some mild cramping and has soaked only 1 pad. However when she returned from ultrasound she was just on a Chux which was approximately one third saturated. - Consultations Consultation #1: 11/13/21 06:[address] Dee Campo on-call for [employer]. She recommended oral Methergine every 6 hours for 2 to 3 days and follow-up with [facility] this week. ED Medical Decision Making - Lab Data Result diagrams: 11/13/21 03:25 - Radiology Data Radiology results: report reviewed [facility] [address] [place] [address] Ultrasound Report Signed Patient: EDISON FOUNTAIN MR#: [id number] : 1985 Acct:[id number] Age/Sex: 36 / F ADM Date: 11/12/21 Loc: ED Attending Dr: Ordering Physician: PHYLLIS ARANGO Date of Service: 11/13/21 Procedure(s): US OB transvaginal Accession Number(s): [id number] cc: PHYLLIS ARANGO ULTRASOUND OBSTETRIC INDICATION: Spontaneous . Clinical Gestational Age (GA): Unknown. TECHNIQUE: Transabdominal and Transvaginal. COMPARISON: OB ultrasound performed on 11/11/2021. FINDINGS: No intrauterine or ectopic is identified. There is similar endometrial thickening, measuring 2.8 cm. No increased color flow is seen along the endometrium. No other significant abnormality of the uterus. The ovaries are not seen. No adnexal mass is identified. No free fluid is seen. IMPRESSION: 1. No sonographic evidence of an intrauterine or ectopic . 2. Persistent endometrial thickening without identification of increased color flow along the endometrium as noted previously. Signer Name: Chucky Robles MD Signed: 11/13/2021 4:48 AM Workstation Name: [id number] Transcribed By: VICK Dictated By: Chucky Robles MD Electronically Authenticated By: Chucky Robles MD Signed Date/Time: 11/13/21447 DD/ 4 TD/TT: - Medical Decision Making As above Case discussed with Dr. Tiwari. Patient is soaking less than 1 pad an hour at this time. IV fluids have been given and she is not orthostatic. Ultrasound reveals resolution of the vascular component of retained products. Methergine 0.2 mg every 6 hours for 3 days and follow-up with [facility] - Differential Diagnosis Spontaneous AB. Incomplete AB. Vaginal bleeding. Critical care attestation.: If time is entered above; I have spent that time in minutes in the direct care of this critically ill patient, excluding procedure time. ED Disposition Clinical Impression: Spontaneous , Anemia Disposition: HOME / SELF CARE / HOMELESS Is pt being admited?: No Condition: Stable Instructions: Miscarriage, [id number] Additional Instructions: Methergine 0.2 mg every 6 hours for 3 days and follow-up with [facility]. Continue pad count and if soaking more than 1 pad per hour or increasing weakness/fatigue return. Prescriptions: Methylergonovine [Methergine] 0.2 mg PO Q6HR 3 Days #12 tablet 148/Iron/Folate 6/Dha [Tendera-Ob Softgel] 1 each PO DAILY #30 cap Referrals: PRIMARY CARE, [Primary Care Provider] - 3-5 Days Forms: Work/School Release Form(ED) Time of Disposition: 06:38
--- NOTE | 2021-11-13 04:52 | Ultrasound Report ---
ULTRASOUND OBSTETRIC INDICATION: Spontaneous . Clinical Gestational Age (GA): Unknown. TECHNIQUE: Transabdominal and Transvaginal. COMPARISON: OB ultrasound performed on 11/11/2021. FINDINGS: No intrauterine or ectopic is identified. There is similar endometrial thickening, measurin g 2.8 cm. No increased color flow is seen along the endometrium. No other significant abnormality of the uterus. The ovaries are not seen. No adnexal mass is identified. No free fluid is seen. IMPRESSION: 1. No sonographic evidence of an intrauterine or ectopic . 2. Persistent endometrial thickening without identification of increased color flow along the endomet rium as noted previously. Signer Name: Chucky Robles MD Signed: 11/13/2021 4:48 AM Workstation Name: [id number]
[2021-11-13] MEDS ORDERED: METHYLERGONOVINE 0.2 MG TABLET PO ONE (06:33)
[2021-11-13] MEDS ORDERED: METHYLERGONOVINE 0.2 MG TABLET PO SCH (07:30)
[2021-11-13 07:32] VITALS: BP 99/63
--- NOTE | 2021-11-14 09:50 | Emergency Department Report ---
HPI - General Chief Complaint: Vaginal Bleeding Time Seen by Provider: 11/13/21 02:21 - HPI HPI: This is an addendum to patient's original chart. My physical exam did not get documented. General appearance well-developed well-nourished 36-year-old female in moderate distress. Eyes conjunctiva clear without scleral icterus HEENT head is atraumatic n ormocephalic neck is supple without lymphadenopathy heart is regular rate and rhythm without murmurs rubs or gallops lungs clear to auscultation without rales rhonchi or wheezes abdomen is soft with diffuse tendernessno peritoneal signs. Bowel sounds are normal active no CVA tenderness. Female genitourinary urinary external genitalia is with moderate amount of blood vaginal vault is with copious amount of blood and clots. Severe laxity of vaginal wall makes it difficult to fully view os but attempt to remove products of conception from the vault with gentle uterine massage simultaneously eventually the patient stated her symptoms had subsided significantly. Skin no evidence rash jaundice or pallor noted extremities no evidence edema or calf tenderness. Neurological moving all extremities without difficulty cranial nerve appear intact. ED Past Medical Hx - Past Medical History Previous Medical History?: Yes Hx Hypertension: No Additional medical history: MISCARRIAGE - Surgical History Past Surgical History?: Yes Additional Surgical History: X 2 - Social History Smoking Status: Never Smoker Substance Use Type: None - Medications Home Medications: Home Medications Medication Instructions Recorded Confirmed Last Taken Type Acetaminophen [Acetaminophen TAB] 500 mg PO Q6HR PRN #40 tablet 09/14/21 Unknown Rx Methylergonovine [Methergine] 0.2 mg PO Q6HR 3 Days #12 tablet 11/13/21 Unknown Rx 148/Iron/Folate 6/Dha 1 each PO DAILY #30 cap 11/13/21 Unknown Rx [Tendera-Ob Softgel] ED Review of Systems ROS: Stated complaint: BLEEDING Other details as noted in HPI Physical Exam - Physical Exam Vital Signs: Vital Signs 11/12/21 11/13/21 11/13/21 23:17 01:53 06:11 Temperature 97.8 F Pulse Rate 76 84 Pulse Rate [ 85 Lying] Pulse Rate [ 88 Sitting] Respiratory 18 14 Rate Blood Pressure 117/74 Blood Pressure 106/72 [Left] Blood Pressure 94/51 [Lying] Blood Pressure 91/55 [Sitting] O2 Sat by Pulse 98 100 Oximetry 11/13/21 11/13/21 07:30 07:31 Temperature Pulse Rate 88 88 Pulse Rate [ Lying] Pulse Rate [ Sitting] Respiratory 16 16 Rate Blood Pressure Blood Pressure 99/63 99/63 [Left] Blood Pressure [Lying] Blood Pressure [Sitting] O2 Sat by Pulse 100 100 Oximetry ED Course Vital Signs 11/12/21 11/13/21 11/13/21 23:17 01:53 06:11 Temperature 97.8 F Pulse Rate 76 84 Pulse Rate [ 85 Lying] Pulse Rate [ 88 Sitting] Respiratory 18 14 Rate Blood Pressure 117/74 Blood Pressure 106/72 [Left] Blood Pressure 94/51 [Lying] Blood Pressure 91/55 [Sitting] O2 Sat by Pulse 98 100 Oximetry 11/13/21 11/13/21 07:30 07:31 Temperature Pulse Rate 88 88 Pulse Rate [ Lying] Pulse Rate [ Sitting] Respiratory 16 16 Rate Blood Pressure Blood Pressure 99/63 99/63 [Left] Blood Pressure [Lying] Blood Pressure [Sitting] O2 Sat by Pulse 100 100 Oximetry ED Medical Decision Making - Lab Data Result diagrams: 11/13/21 03:25 Critical care attestation.: If time is entered above; I have spent that time in minutes in the direct care of this critically ill patient, excluding procedure time. ED Disposition Clinical Impression: Spontaneous at 8 to 28 weeks gestation Disposition: 01 HOME / SELF CARE / HOMELESS Is pt being admited?: No Condition: Stable Instructions: Miscarriage, Mgnt-do-Ohch Additional Instructions: Methergine 0.2 mg every 6 hours for 3 days and follow-up with [facility]. Continue pad count and if soaking more than 1 pad per hour or increasing weakness/fatigue return. Prescriptions: Methylergonovine [Methergine] 0.2 mg PO Q6HR 3 Days #12 tablet 148/Iron/Folate 6/Dha [Tendera-Ob Softgel] 1 each PO DAILY #30 cap Referrals: PRIMARY CARE, [Primary Care Provider] - 3-5 Days Forms: Work/School Release Form(ED) Time of Disposition: 00:00 (N/A. Addendum to primary dictation)
== END 2021-11-13 07:30 | disposition home or self-care (01) ==
LOC: ED 23:10
DX: O03.9 Complete or unspecified spontaneous abortion without complication (principal); Z3A.17 17 weeks gestation of pregnancy; Z98.890 Other specified postprocedural states
CPT/HCPCS: 36415; 76805; 76817; 81001; 84702; 84703; 85014; 85018; 85025; 86900; 86901; 96361; 96365; 96375; 99284; J0696; J2270; J7030; 76801

== ENCOUNTER 2021-11-23 10:37 | Emergency (ER) | payer OTHER ==
[2021-11-24] MEDS ORDERED: MORPHINE 4 MG/1 ML INJ IM STA (02:16)
[2021-11-24 04:01] LABS: Hematocrit 21.5 % (30.3-42.9); Mean Corpuscular HGB Conc 32 % (30-34); Mean Corpuscular Volume 87 fl (79-97); Platelet Count 285 K/mm3 (140-440); Red Blood Count 2.47 M/mm3 (3.65-5.03)
[2021-11-24 04:10] LABS: Blood Urea Nitrogen 8 mg/dL (7-17); Calcium 8.4 mg/dL (8.4-10.2); Hemolysis Index 0
[2021-11-24 04:39] LABS: BUN/Creatinine Ratio 16
--- NOTE | 2021-11-24 07:05 | Ultrasound Report ---
ULTRASOUND OBSTETRIC INDICATION / CLINICAL INFORMATION: miscarriage. Beta-hCG was 2018 on 11/12/2021. Clinical Gestational Age (GA) in weeks, days: 17 weeks 5 days based on LMP of 07/23/2021 TECHNIQUE: Transabdominal. COMPARISON: OB ultrasound 11/13/2021; OB ultrasound 11/11/2021. OB ultrasound 09/14/2021 FINDINGS: Uterus measures 14.2 x 5.5 x 5.9 cm. The endometrium is somewhat thickened measuring 14 mm. No color flow is present. No hyperechoic foci are suggested within the endometrial cavity. The right ovary measures 8.8 x 5.9 x 9.7 cm. A cyst is present within the right adnexa favored to ref lect right ovarian cyst. This measures 8.8 x 5.9 x 9.7 cm. Minimal peripheral color flow is demonstra kolby, no Doppler waveforms were acquired. Little change in size or appearance is demonstrated since 2021. The left ovary measures 2.1 x 2.0 x 2.1 cm. Color flow within the left ovary is demonstrated. No Dopp ler waveforms were acquired. IMPRESSION: 1. Right ovarian cyst with little interval change in size since September 2021. 2. No ultrasound evidence of retained products. Signer Name: Raymundo Payne II, MD Signed: 11/24/2021 7:00 AM Workstation Name: [id number]
[2021-11-24] MEDS ORDERED: SODIUM CHLORIDE 0.9% 1000 ML 1,000 ML IV ONE (07:31)
--- NOTE | 2021-11-24 08:32 | Emergency Department Report ---
ED Female HPI - General Chief complaint: Abdominal Pain Stated complaint: ABD PAIN Time Seen by Provider: 11/24/21 03:03 Source: patient Mode of arrival: Ambulatory Limitations: No Limitations - History of Present Illness Initial comments: This is a 36-year-old female nontoxic, well nourished in appearance, no acute signs of distress presents to the ED with c/o of pelvic cramping and vaginal bleeding x several days. Patient stated on 11/14/2021 had a miscarriage and since then has vaginal bleeding. Stated bleeding has decreased and goes about 2- 3 pads in 24 hours. Patient stated has pelvic cramping. Patient denies any vaginal discharge or foul odor. Patient denies any nausea, vomiting, chest pain, shortness of breathe, fever, chills, headache, stiff neck, numbness, tingling. Patient denies any urinary symptoms. Patient denies any allergies. MD Complaint: vaginal bleeding -: days(s) Radiation: non-radiating Severity: mild Severity scale (0 -10): 3 Quality: cramping Consistency: intermittent Improves with: none Worsens with: none Associated Symptoms: vaginal bleeding. denies: vaginal discharge, abdominal pain, nausea/vomiting, fever/chills, headaches, loss of appetite, dysuria, kennedy turia, rash, seizure, shortness of breath, syncope, weakness - Related Data Previous Rx's Medication Instructions Recorded Last Taken Type Acetaminophen [Acetaminophen TAB] 500 mg PO Q6HR PRN #40 tablet 09/14/21 Unknown Rx Methylergonovine [Methergine] 0.2 mg PO Q6HR 3 Days #12 tablet 11/13/21 Unknown Rx 148/Iron/Folate 6/Dha 1 each PO DAILY #30 cap 11/13/21 Unknown Rx [Tendera-Ob Softgel] Ferrous Sulfate [Iron 325 MG] 325 mg PO DAILY #30 tab 11/24/21 Unknown Rx Allergies Allergy/AdvReac Type Severity Reaction Status Date / Time No Known Allergies Allergy Verified 11/23/21 10:42 ED Review of Systems ROS: Stated complaint: ABD PAIN Other details as noted in HPI Comment: All other systems reviewed and negative Constitutional: denies: chills, fever Eyes: denies: eye pain, eye discharge, vision change ENT: denies: ear pain, throat pain Respiratory: denies: cough, shortness of breath, wheezing Cardiovascular: denies: chest pain, palpitations Endocrine: no symptoms reported Gastrointestinal: denies: abdominal pain, nausea, diarrhea Genitourinary: abnormal menses. denies: urgency, dysuria, frequency, hematuria, discharge, dyspareunia Musculoskeletal: denies: back pain, joint swelling, arthralgia Skin: denies: rash, lesions Neurological: denies: headache, weakness, paresthesias Psychiatric: denies: anxiety, depression Hematological/Lymphatic: denies: easy bleeding, easy bruising ED Past Medical Hx - Past Medical History Hx Hypertension: No Additional medical history: MISCARRIAGE - Surgical History Additional Surgical History: X 2 - Social History Smoking Status: Never Smoker Substance Use Type: None - Medications Home Medications: Home Medications Medication Instructions Recorded Confirmed Last Taken Type Acetaminophen [Acetaminophen TAB] 500 mg PO Q6HR PRN #40 tablet 09/14/21 Unknown Rx Methylergonovine [Methergine] 0.2 mg PO Q6HR 3 Days #12 tablet 11/13/21 Unknown Rx 148/Iron/Folate 6/Dha 1 each PO DAILY #30 cap 11/13/21 Unknown Rx [Tendera-Ob Softgel] Ferrous Sulfate [Iron 325 MG] 325 mg PO DAILY #30 tab 11/24/21 Unknown Rx ED Physical Exam - General Limitations: No Limitations General appearance: alert, in no apparent distress - Head Head exam: Present: atraumatic, normocephalic - Eye Eye exam: Present: normal appearance - Neck Neck exam: Present: normal inspection, full ROM. Absent: lymphadenopathy - Respiratory Respiratory exam: Absent: respiratory distress - Cardiovascular Cardiovascular Exam: Present: regular rate - GI/Abdominal GI/Abdominal exam: Present: soft, normal bowel sounds. 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 Absent: erythema, swelling, lesions, lacerations, bleeding Speculum exam: Present: vaginal bleeding (slight), other (Perf[employer] Maker [employer]ilo assistant football coach present during exam). Absent: erythema, vaginal discharge, cervical discharge, foreign body, tissue, laceration Bi-manual exam: Present: normal bi-manual exam, other (Perf[employer] Maker [employer]ilo assistant football coach present during exam). Absent: cervical motion tendernes, adnexal tenderness, adnexal mass, uterine enlargement, uterine tenderness - Extremities Exam Extremities exam: Present: full ROM - Back Exam Back exam: Present: normal inspection, full ROM. Absent: tenderness, CVA tenderness (R), CVA tenderness (L), muscle spasm, paraspinal tenderness, vertebral tenderness, rash noted - Neurological Exam Neurological exam: Present: alert, oriented X3, normal gait - Psychiatric Psychiatric exam: Present: normal affect, normal mood - Skin Skin exam: Present: warm, dry, intact, normal color. Absent: rash ED Course Vital Signs 11/23/21 11/24/21 11/24/21 10:39 12:10 12:14 Temperature 98.7 F 98.2 F Pulse Rate 82 76 Respiratory 18 18 Rate Blood Pressure 134/66 Blood Pressure 123/79 [Left] O2 Sat by Pulse 99 98 99 Oximetry 11/24/21 11/24/21 11/24/21 12:21 12:25 12:31 Temperature 98.5 F Pulse Rate 75 Respiratory 18 Rate Blood Pressure 123/65 121/68 127/74 Blood Pressure [Left] O2 Sat by Pulse 100 100 100 Oximetry 11/24/21 11/24/21 11/24/21 12:41 12:51 13:01 Temperature Pulse Rate Respiratory Rate Blood Pressure 121/68 128/76 128/76 Blood Pressure [Left] O2 Sat by Pulse 100 100 99 Oximetry 11/24/21 11/24/21 11/24/21 13:11 13:21 13:31 Temperature Pulse Rate Respiratory Rate Blood Pressure 128/76 124/67 124/67 Blood Pressure [Left] O2 Sat by Pulse 99 100 100 Oximetry 11/24/21 11/24/21 11/24/21 13:41 13:51 14:01 Temperature Pulse Rate Respiratory Rate Blood Pressure 124/67 121/67 121/67 Blood Pressure [Left] O2 Sat by Pulse 98 97 99 Oximetry 11/24/21 11/24/21 11/24/21 14:11 14:20 14:31 Temperature Pulse Rate Respiratory Rate Blood Pressure 121/67 121/67 124/67 Blood Pressure [Left] O2 Sat by Pulse 100 99 100 Oximetry 11/24/21 11/24/21 11/24/21 14:41 14:51 15:01 Temperature Pulse Rate Respiratory Rate Blood Pressure 124/67 121/67 121/67 Blood Pressure [Left] O2 Sat by Pulse 100 100 100 Oximetry 11/24/21 11/24/21 11/24/21 15:10 15:13 15:21 Temperature 98.2 F Pulse Rate 68 Respiratory 16 Rate Blood Pressure 112/58 110/64 110/64 Blood Pressure [Left] O2 Sat by Pulse 100 100 100 Oximetry 11/24/21 11/24/21 11/24/21 15:31 15:35 15:41 Temperature 98.9 F Pulse Rate 77 Respiratory 18 Rate Blood Pressure 110/64 110/64 110/64 Blood Pressure [Left] O2 Sat by Pulse 100 100 100 Oximetry 11/24/21 11/24/21 11/24/21 15:51 16:01 16:11 Temperature Pulse Rate Respiratory Rate Blood Pressure 112/58 112/58 112/58 Blood Pressure [Left] O2 Sat by Pulse 100 100 100 Oximetry 11/24/21 11/24/21 11/24/21 16:21 16:31 16:41 Temperature Pulse Rate Respiratory Rate Blood Pressure 117/64 117/64 117/64 Blood Pressure [Left] O2 Sat by Pulse 100 100 100 Oximetry 11/24/21 11/24/21 11/24/21 16:51 17:01 17:11 Temperature Pulse Rate Respiratory Rate Blood Pressure 115/70 115/70 115/70 Blood Pressure [Left] O2 Sat by Pulse 100 100 100 Oximetry 11/24/21 17:24 Temperature 98.5 F Pulse Rate 76 Respiratory 18 Rate Blood Pressure 133/73 Blood Pressure [Left] O2 Sat by Pulse 100 Oximetry - Reevaluation(s) Reevaluation #1: 11/24/21 08:33 Patient is speaking in full sentences with no signs of distress noted. Reevaluation #2: 11/24/21 17:44 Patient is resting comfortable. 2nd PRBCs almost completed. Vital signs stable. - Consultations Consultation #1: 11/24/21 08:34 Patient has been consulted with Dr. Mejia about patient history, physical exam, and labs/imaging results and patient to be transfused 2 RBCs and consult with OBGYN. Consultation #2: 11/24/21 08:35 Patient has been consulted with Dr. Zaragoza (OBGYN) about patient history, physical exam, and labs/imaging results and patient to be transfused and out patient follow-up within 2-3 days. ED Medical Decision Making - Lab Data Result diagrams: 11/24/21 03:39 11/24/21 03:39 Lab Results 11/24/21 11/24/21 Range/Units 03:39 03:39 WBC 7.0 (4.5-11.0) K/mm3 RBC 2.47 L (3.65-5.03) M/mm3 Hgb 7.0 L (10.1-14.3) gm/dl Hct 21.5 L (30.3-42.9) % MCV 87 (79-97) fl MCH 28 (28-32) pg MCHC 32 (30-34) % RDW 14.0 (13.2-15.2) % Plt Count 285 (140-440) K/mm3 Sodium 135 L (137-145) mmol/L Potassium 3.7 (3.6-5.0) mmol/L Chloride 103.2 (98-107) mmol/L Carbon Dioxide 21 L (22-30) mmol/L Anion Gap 15 mmol/L BUN 8 (7-17) mg/dL Creatinine 0.5 L (0.6-1.2) mg/dL Estimated GFR > 60 ml/min BUN/Creatinine Ratio 16 % Glucose 88 (65-100) mg/dL Calcium 8.4 (8.4-10.2) mg/dL - Medical Decision Making This is a 36-year-old female that presents with dysfunctional uterine bleeding. Patient is stable and was examined by me. Patient consulted with [facility]. Please see notes for this. Patient was transfused 2 RBCs. Vital signs are stable at discharge. Patient is notified of the lab results and ultrasound report with no questions noted by the patient. Patient was instructed to follow-up with a OBGYN doctor in 2-3 days or if symptoms worsen and continue return to emergency room as soon as possible. At time of discharge, the patient does not seem toxic or ill in appearance. No acute signs of distress noted. Patient agrees to discharge treatment plan of care. No further questions noted by the patient. Critical care attestation.: If time is entered above; I have spent that time in minutes in the direct care of this critically ill patient, excluding procedure time. ED Disposition Clinical Impression: Dysfunctional uterine bleeding, Low hemoglobin and low hematocrit Disposition: 01 HOME / SELF CARE / HOMELESS Is pt being admited?: No Does the pt Need Aspirin: No Condition: Stable Instructions: Dysfunctional Uterine Bleeding, Abdominal Pain (ED) Additional Instructions: Follow-up with a OBGYN doctor in 2-3 days or if symptoms worsen and continue return to emergency room as soon as possible. Prescriptions: Ferrous Sulfate [Iron 325 MG] 325 mg PO DAILY #30 tab Referrals: PRIMARY CARE, [Primary Care Provider] - 3-5 Days [facility] [Provider Group] - 2-3 Days [facility] [Provider Group] - 2-3 Days MANI ZARAGOZA MD [Staff Physician] - 2-3 Days Time of Disposition: 12:14
[2021-11-24] MEDS ORDERED: SODIUM CHLORIDE 0.9% 500 ML 500 ML IV ONE (08:37)
[2021-11-24 18:14] VITALS: BP 114/78
== END 2021-11-24 18:13 | disposition home or self-care (01) ==
LOC: ED 10:37
DX: N93.9 Abnormal uterine and vaginal bleeding, unspecified (principal); D64.9 Anemia, unspecified
CPT/HCPCS: 36415; 36430; 76801; 80048; 85027; 86850; 86900; 86901; 86920; 96360; 96372; 99284; J2270; J7030; P9016; 96361; 96374